=== PATIENT | male | born 1985 | race Caucasian/White ===

== ENCOUNTER 2019-02-14 01:24 | Observation (INO) | payer OTHER ==
[2019-02-14] MEDS ORDERED: HYDROCODONE/APAP (5/325) TAB PO (02:00)
[2019-02-14] MEDS ORDERED: BISACODYL (EC) 5 MG TAB PO (02:00)
[2019-02-14] MEDS ORDERED: NACL 0.9% 3 ML SYG IV (02:00)
[2019-02-14] MEDS ORDERED: predniSONE 10 MG TAB PO (02:00)
[2019-02-14] MEDS ORDERED: ONDANSETRON 4 MG INJ IV (02:00)
[2019-02-14] MEDS ORDERED: DOCUSATE SODIUM 100 MG CAP PO (02:00)
[2019-02-14] MEDS ORDERED: ACETAMINOPHEN 325 MG TAB PO (02:00)
[2019-02-14 02:40] LABS: ADD MAN DIFF? NO
[2019-02-14 02:47] LABS: WHITE BLOOD COUNT 11.1 10^3/ul (4.8-10.8)
[2019-02-14 02:47] LABS: ABNORMAL IP MESSAGE 1; BASOPHILS % 0.3 % (0.0-2.0); EOSINOPHILS % 0.1 % (0.0-7.0); HEMATOCRIT 45.2 % (42.0-52.0); HEMOGLOBIN 15.4 g/dl (14.0-18.0); LYMPHOCYTES # 0.3 10^3/ul (0.8-2.9); LYMPHOCYTES % 3.1 % (15.0-51.0); MEAN CORPUSCULAR HEMOGLOBIN 29.8 pg (29.0-33.0); MEAN CORPUSCULAR HGB CONC 34.1 g/dl (32.0-37.0); MEAN CORPUSCULAR VOLUME 87.4 fl (82.0-101.0); MEAN PLATELET VOLUME 10.2 fl (7.4-10.4); MONOCYTE # 0.1 10^3/ul (0.3-0.9); MONOCYTES % 0.7 % (0.0-11.0); NEUTROPHIL # 10.6 10^3/ul (1.6-7.5); NEUTROPHILS % 95.4 % (39.0-77.0); PLATELET COUNT 286 10^3/UL (140-415); POSITIVE DIFF @See below; RED BLOOD COUNT 5.17 10^6/ul (4.70-6.10); RED CELL DISTRIBUTION WIDTH 11.6 % (11.5-14.5)
[2019-02-14 03:06] LABS: CHOLESTEROL 166 mg/dl (100-200)
[2019-02-14 03:06] LABS: CHOL/HDL RATIO 1.7 RATIO; HDL CHOLESTEROL 94 mg/dl (28-63); LDL CHOLESTEROL,CALCULATED 65 mg/dl; TRIGLYCERIDES 35 mg/dl (0-149)
[2019-02-14 03:07] LABS: ALANINE AMINOTRANSFERASE 9 IU/L (13-69); ALBUMIN 4.9 g/dl (3.3-4.9); ALKALINE PHOSPHATASE 80 IU/L (42-121); ANION GAP 14 (5-13); ASPARTATE AMINO TRANSFERASE 28 IU/L (15-46); BILIRUBIN,INDIRECT 0.5 mg/dl (0-1.1); BILIRUBIN,TOTAL 0.5 mg/dl (0.2-1.3); BLOOD UREA NITROGEN 10 mg/dl (7-20); CALCIUM 9.8 mg/dl (8.4-10.2); CARBON DIOXIDE 23 mmol/L (21-31); CHLORIDE 106 mmol/L (97-110); CREATININE 0.58 mg/dl (0.61-1.24); Estimated GFR > 60 mL/min (>60); GLUCOSE 160 mg/dl (70-220); MAGNESIUM 2.1 mg/dl (1.7-2.5); SODIUM 143 mmol/L (135-144); TOTAL PROTEIN 8.4 g/dl (6.1-8.1)
[2019-02-14 03:08] LABS: POTASSIUM 4.2 mmol/L (3.5-5.1)
[2019-02-14 03:14] LABS: B-TYPE NATRIURETIC PEPTIDE 28 PG/ML (0-125)
[2019-02-14] MEDS: predniSONE 20 MG TAB PO ×2 (03:25→15:32)
[2019-02-14 04:03] LABS: THYROID STIMULATING HORMONE 0.141 MIU/L (0.465-4.680)
[2019-02-14] MEDS: PANTOPRAZOLE (EC) 40 MG TAB PO (05:49)
[2019-02-14] MEDS: ALBUTEROL/IPRATROPIUM (NEB) 3 ML AMP HHN (06:12)
[2019-02-14 10:10] LABS: FREE T3 4.61 pg/ml (2.77-5.27)
[2019-02-14 10:22] LABS: FREE T4 (FREE THYROXINE) 1.17 ng/dl (0.79-2.35)
[2019-02-14] MEDS: IPRATROPIUM (NEB) 0.5 MG/2.5 ML AMP HHN ×4 (10:44→20:37)
[2019-02-14] MEDS: LEVALBUTEROL (NEB) 1.25 MG/0.5 ML AMP HHN ×4 (10:45→20:37)
[2019-02-14] MEDS: LEVOFLOXACIN 500MG/D5W (PMX) 100 ML IVPB (12:46)
[2019-02-15] MEDS: LEVALBUTEROL (NEB) 1.25 MG/0.5 ML AMP HHN ×3 (00:28→09:35)
[2019-02-15] MEDS: IPRATROPIUM (NEB) 0.5 MG/2.5 ML AMP HHN ×3 (00:28→09:35)
[2019-02-15] MEDS: PANTOPRAZOLE (EC) 40 MG TAB PO (05:50)
[2019-02-15 06:40] LABS: ADD MAN DIFF? NO
[2019-02-15 06:57] LABS: WHITE BLOOD COUNT 8.4 10^3/ul (4.8-10.8)
[2019-02-15 06:57] LABS: BASOPHILS % 0.4 % (0.0-2.0); EOSINOPHILS # 0.4 10^3/ul (0.0-0.5); EOSINOPHILS % 4.5 % (0.0-7.0); HEMATOCRIT 44.6 % (42.0-52.0); HEMOGLOBIN 14.9 g/dl (14.0-18.0); LYMPHOCYTES # 1.3 10^3/ul (0.8-2.9); MEAN CORPUSCULAR HEMOGLOBIN 29.7 pg (29.0-33.0); MEAN CORPUSCULAR HGB CONC 33.4 g/dl (32.0-37.0); MEAN CORPUSCULAR VOLUME 88.8 fl (82.0-101.0); MEAN PLATELET VOLUME 10.6 fl (7.4-10.4); MONOCYTE # 0.6 10^3/ul (0.3-0.9); MONOCYTES % 7.5 % (0.0-11.0); NEUTROPHILS % 71.2 % (39.0-77.0); PLATELET COUNT 260 10^3/UL (140-415); RED BLOOD COUNT 5.02 10^6/ul (4.70-6.10); RED CELL DISTRIBUTION WIDTH 12.1 % (11.5-14.5)
[2019-02-15 07:34] LABS: ALANINE AMINOTRANSFERASE 14 IU/L (13-69); ALBUMIN 4.4 g/dl (3.3-4.9); ALBUMIN/GLOBULIN RATIO 1.46; ALKALINE PHOSPHATASE 72 IU/L (42-121); ANION GAP 13 (5-13); ASPARTATE AMINO TRANSFERASE 20 IU/L (15-46); BILIRUBIN,INDIRECT 0.3 mg/dl (0-1.1); BILIRUBIN,TOTAL 0.3 mg/dl (0.2-1.3); BLOOD UREA NITROGEN 15 mg/dl (7-20); CALCIUM 9.4 mg/dl (8.4-10.2); CARBON DIOXIDE 29 mmol/L (21-31); CHLORIDE 101 mmol/L (97-110); CREATININE 0.76 mg/dl (0.61-1.24); Estimated GFR > 60 mL/min (>60); GLUCOSE 100 mg/dl (70-220); SODIUM 143 mmol/L (135-144); TOTAL PROTEIN 7.4 g/dl (6.1-8.1)
[2019-02-15] MEDS: METHYLPREDNISOLONE 40 MG INJ IV (08:41)
[2019-02-15] MEDS: LEVOFLOXACIN 500MG/D5W (PMX) 100 ML IVPB (12:11)
== END 2019-02-15 14:40 | disposition home or self-care (01) ==
LOC: 6WM 01:24
PROVIDERS: Family Medicine
DX: R06.2 Wheezing (principal); D72.829 Elevated white blood cell count, unspecified; Z72.0 Tobacco use
CPT/HCPCS: 71250; 80053; 80061; 82306; 83036; 83735; 83880; 84439; 84443; 84481; 85025; 85378; 94640; 94664; G0378